=== PATIENT | female | born 1970 | race Caucasian/White ===

== ENCOUNTER 2019-10-27 13:38 | Emergency (ER) | payer OTHER, SELFPAY ==
[2019-10-27 13:59] VITALS: BP 132/84; PULSE 108; RESP 16; TEMP 36.3; O2SAT 100
--- NOTE | 2019-10-27 14:06 | ED.GENADULT ---
HPI - General Adult General Chief complaint: Skin/Abscess/Foreign Body Stated complaint: itchy skin/scalp Time Seen by Provider: 10/27/19 14:18 Source: patient Mode of arrival: ambulatory Limitations: no limitations History of Present Illness HPI narrative: 48-year-old female patient presents to the [facility] with complaints of itchy skin to the back, neck and scalp for the past month. Patient does admit to recent drug use of crack cocaine and methamphetamines most recently done yesterday. Patient denies any rashes that she is aware of. Patient states that she has been sleeping in multiple different areas recently. Patient states that the itching is worse at night when she sleeps. Patient denies any fevers, chest pain, shortness of breath, nausea, vomiting or diarrhea. Related Data Allergies Allergy/AdvReac Type Severity Reaction Status Date / Time No Known Allergies Allergy Verified 10/27/19 14:01 Review of Systems Review of Systems: Narrative: CONSTITUTIONAL: Denies fever, chills, or sweats. EYES: Denies visual changes, redness, or discharge. ENT: Denies rhinorrhea, congestion, sore throat, or otalgia. CARDIOVASCULAR: Denies chest pain, palpitations, or edema. RESPIRATORY: Denies cough or dyspnea. GASTROINTESTINAL: Denies abdominal pain, nausea, vomiting, or diarrhea. GENITOURINARY: Denies dysuria or hematuria. SKIN: Denies rash, positive itching skin to the back, neck and scalp x1 month. MUSCULOSKELETAL: Denies back pain, joint pain, or myalgia. NEUROLOGIC: Denies headache, numbness, or weakness. PSYCHIATRIC: Denies anxiety or depression. PMFSH Comments At the time of my signature I agree with nursing past medical history, surgical, social, and family history. There is no relevant family history pertinent to the presenting complaint. Exam Narrative: Exam Narrative: GENERAL: Well-appearing, well-nourished, and in no acute distress. HEAD: Normocephalic, atraumatic. EYES: PERRLA and EOMI. ENT: Nares clear, no rhinorrhea or epistaxis. Mucous membranes moist. NECK: Supple. No lymphadenopathy CHEST: Clear to auscultation. No respiratory distress. HEART: Regular rate and rhythm. No murmur heard. Normal peripheral pulses. ABDOMEN: Soft, nontender, nondistended, normal active bowel sounds. EXTREMITIES: Normal range of motion. No edema. SKIN: Warm, dry, no rash. A few possible bites noted to the upper middle back and base of the neck area. There is some reddened areas in the scalp with the base of the skull noted. No obvious rash noted anywhere on the arms, legs. No open wounds anywhere. NEURO: No focal deficits. Alert and oriented x3. Course Vital Signs Vital signs: Vital Signs Temperature 36.3 C L 10/27/19 13:59 Pulse Rate 108 H 10/27/19 13:59 Respiratory Rate 16 10/27/19 13:59 Blood Pressure 132/84 10/27/19 13:59 Pulse Oximetry 100 10/27/19 13:59 Temperature 36.3 C L 10/27/19 13:59 Pulse Rate 108 H 10/27/19 13:59 Respiratory Rate 16 10/27/19 13:59 Blood Pressure 132/84 10/27/19 13:59 Pulse Oximetry 100 10/27/19 13:59 Vital signs reviewed. The patient has been informed that they may have pre-hypertension or Hypertension based on a BP reading in the department. I recommend that the patient call the primary care provider listed on their discharge instructions or a physician of their choice this week to arrange follow up for further evaluation of possible pre-hypertension or Hypertension Medical Decision Making Differential Diagnosis Differential Diagnosis: Differential diagnosis: Contact dermatitis, poison michelle, poison sumac, psoriasis, eczema, allergic reaction, drug reaction, scabies, tinea syphilis, lung disease, viral exanthema, pityriasis, erythema multiforme. Discussed with patient that the fact that the itching is worse at night when she sleeps this could possibly be an exposure to bedbugs especially if she has been sleeping in multiple areas. Discussed with patient that I can go
== END 2019-10-27 14:20 | disposition home or self-care (01) ==
PROVIDERS: Emergency Provider Nurse Practitioner Family
DX: L29.9 Pruritus, unspecified (principal); S20.469A Insect bite (nonvenomous) of unspecified back wall of thorax, initial encounter; W57.XXXA Bitten or stung by nonvenomous insect and other nonvenomous arthropods, initial encounter
CPT/HCPCS: 99203; G0463